=== PATIENT | male | born 1950 | race Caucasian/White ===

== ENCOUNTER 2017-01-02 16:04 | Inpatient (IN) | payer MEDICARE, OTHER ==
[~2017-01-02] VITALS: Ht 180.3 cm; Wt 93.7 kg
[~2017-01-02 16:04] MED LIST: ALLE60TA PO; APIX5TAB PO; BENI20TA5 PO; FLUT1SPR5 EACH NARE; LEVO.075 PO; RAPA8CAP PO; SYNT88TA PO; [UNRECOGNIZED DRUG - CODE] PO
[2017-01-09] MEDS ORDERED: ASPI81TA11 PO (12:20)
[2017-01-10] MEDS ORDERED: PROPOFOL 200 MG/20 ML AMP IV ONE (10:24)
[2017-01-10] MEDS ORDERED: ePHEDrine/NS 25 MG/5 ML SYR IV ONE (10:26)
[2017-01-10] MEDS ORDERED: PHENYLEPH/NS 1000 MCG/10 ML SYR IV ONE (10:27)
[2017-01-10] MEDS ORDERED: LACTATED RINGER'S 1000 ML INJ 1,000 ML IV ONE (10:27)
[2017-01-10] MEDS ORDERED: ONDANSETRON HCL 4 MG/2 ML VIAL IV PUSH ONE (10:27)
[2017-01-10] MEDS ORDERED: CHLORHEXIDINE GLUCONATE 2 % 1 PACK (2 CLOTHS) TOPICAL PRN (11:45)
[2017-01-10] MEDS ORDERED: LACTATED RINGER'S 1000 ML IV PRN (11:45)
[2017-01-10] MEDS ORDERED: POVIDONE IODINE 5% (ANTISEPSIS KIT) 4 APPLICATIONS EACH NARE PRN (11:45)
[2017-01-10] MEDS ORDERED: METOPROLOL TARTRATE 25 MG TAB PO PRN (11:45)
[2017-01-10] MEDS ORDERED: SODIUM CHLORID 0.9% 500 ML IV PRN (11:45)
[2017-01-10] MEDS ORDERED: INSULIN HUMAN REGULAR 1,000 UNITS/10 ML VIAL SQ PRN (11:45)
[2017-01-10] MEDS ORDERED: CIPROFLOXACIN 400 MG PREMIX 200 ML IV SCH (12:15)
[2017-01-10] MEDS ORDERED: GENTAMICIN IV SCH (12:15)
[2017-01-10] MEDS ORDERED: SODIUM CHLORIDE 0.9% IV SCH (12:15)
[2017-01-10 12:36] VITALS: BP 187/96; PULSE 68; RESP 20; TEMP 99.7; O2SAT 98
[2017-01-10] MEDS ORDERED: DEXAMETHASONE SOD PHOS 4 MG/ML VIAL ONE (13:21)
[2017-01-10] MEDS ORDERED: ACETAMINOPHEN 1000 MG/100 ML VIAL IV ONE (13:21)
[2017-01-10] MEDS ORDERED: fentaNYL CITRATE 250 MCG/5 ML AMP ONE (13:21)
[2017-01-10] MEDS ORDERED: MIDAZOLAM HCL 2 MG/2 ML VIAL ONE (13:21)
--- NOTE | 2017-01-10 15:05 | EKG ---
Date Performed: 01/10/2017 Time Performed: 11:59:23 PTAGE: 66 years EKG: Sinus rhythm NORMAL ECG NO PREVIOUS TRACING DOCTOR: Georgie Barker Interpretating Date/Time 01/10/2017 14:59:00
[2017-01-10] MEDS ORDERED: DO NOT ADM ANY ANTICOAGULANT DRUGS PRN (16:05)
[2017-01-10] MEDS ORDERED: oxyCODONE/ACETAMINOPHEN 5 MG/325 MG TAB PO PRN ×2 (16:15)
[2017-01-10] MEDS ORDERED: SODIUM CHLORIDE 0.9% FLUSH 10 ML FLUSH IV FLUSH PRN (16:15)
[2017-01-10] MEDS ORDERED: NALOXONE HCL 0.4 MG/ML AMP IV PRN (16:15)
[2017-01-10] MEDS ORDERED: LORATADINE 10 MG TAB PO PRN (16:15)
[2017-01-10] MEDS ORDERED: HYDROmorphone HCL PF 1 MG/ML VIAL IV PRN (16:15)
[2017-01-10] MEDS ORDERED: Post-op Orders (for Pharmacy) MISC XX ONE (16:15)
[2017-01-10] MEDS ORDERED: MORPHINE SULFATE 4 MG/ML INJ ONE (17:00)
[2017-01-10] MEDS: HYDROmorphone HCL PCA 6 MG/30 ML IV SCH (17:22)
[2017-01-10] MEDS: OXYBUTYNIN CHLORIDE 5 MG TAB PO SCH (19:55)
[2017-01-10] MEDS: ONDANSETRON HCL 4 MG/2 ML VIAL IV PRN (19:56)
[2017-01-10 20:00] VITALS: BP 91/50; PULSE 81; RESP 11; TEMP 98.2; O2SAT 96
[2017-01-10] MEDS ORDERED: BELLADONNA ALKALOIDS/OPIUM 60 MG SUPP RECTAL PRN (20:00)
[2017-01-10] MEDS ORDERED: ACETAMINOPHEN 325 MG TAB PO PRN (20:00)
[2017-01-10] MEDS: SODIUM CHLORIDE 0.9% FLUSH 10 ML FLUSH IV FLUSH SCH (20:02)
[2017-01-10 20:12] VITALS: BP 91/50; PULSE 81; RESP 11; TEMP 98.2; O2SAT 96
[2017-01-10] MEDS: GENTAMICIN/SOD CHL 80 MG/100 ML IV SCH (20:30)
[2017-01-10] MEDS ORDERED: LOSARTAN 50 MG TAB PO SCH (21:00)
[2017-01-10] MEDS: DOFETILIDE 250 MCG CAP PO SCH (21:04)
[2017-01-10 22:00] VITALS: PULSE 76
[2017-01-10] MEDS: PCA - TOTAL MG DILAUDID DELIVERED PER SHIFT OTHER SCH (22:00)
[2017-01-10] MEDS: DEXT 5%-NACL 0.45% 1000 ML INJ 1,000 ML IV SCH (22:41)
[2017-01-11] VITALS (11 sets, daily range): BP systolic 87–114; BP diastolic 50–61; PULSE 58–76; RESP 9–18; TEMP 98–98.5; O2SAT 95–96
[2017-01-11] MEDS: ONDANSETRON HCL 4 MG/2 ML VIAL IV PRN (03:44)
--- NOTE | 2017-01-11 03:51 | PD.CONS ---
[facility] Service Critical Care Medicine Consult Requested By Dr. 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 He has undergone retropubic prostatectomy by Dr. Tariq. In OR he received 1100 crystalloid, EBL 350, urine output 300. He was admitted to [facility] postoperatively and has been undergoing CBI. He is on maintenance IV fluids at 150 mL per hour. He developed hypotension 87/50 with mean arterial pressure of 62. Critical care medicine has been consulted due to hypotension. Blood pressure had improved to 111/71 without specific intervention. Patient states he is nauseated. He denies chest pressure or shortness of breath. HENNA has 170 of bloody output. Obtaining labs. Review of Systems Gastrointestinal: COMPLAINS OF: Nausea Past Family Social History Allergies: Coded Allergies: Penicillin (Verified Allergy, Unknown, Hives, 01/10/17) Past Medical History Hypothyroidism Hypertension Atrial fibrillation on chronic anticoagulation with xarelto Floater left eye Obesity Vertigo Hematuria Past Surgical History Left plantar fascial release Partial thyroidectomy Cystoscopy Colonoscopy 2 months ago which was performed and Malik. Reportedly no abnormalities Tonsillectomy during childhood Multiple prostate biopsies Face lift Had a cardiac catheterization 5 years ago with nonobstructive coronary disease Reported Medications Rapaflo 8 mg by mouth daily Benicar 20 mg by mouth daily daily at bedtime Dofetilide 250 mcg po bid Eliquis 5 mg by mouth twice a day Flonase 50 g each nares twice a day Aspirin 81 mg by mouth daily Yesica 60 mg by mouth twice a day Synthroid 75 g every other day/88 g every other day Family History Both parents had cancer Social History Lifetime nonsmoker Has 1-2 alcoholic beverages per week No illicit drug use Retired INSPECTOR [employer] Physical Exam Vital Signs Vital Signs Date Time Temp Pulse Resp B/P Pulse Ox O2 Delivery O2 Flow Rate FiO2 01/11/17 00:12 98.5 71 10 87/50 96 01/11/17 00:00 76 01/11/17 00:00 98.5 71 10 87/50 96 01/10/17 22:00 76 01/10/17 22:00 14 01/10/17 20:12 98.2 81 11 91/50 96 01/10/17 20:03 9 01/10/17 20:00 98.2 81 11 91/50 96 01/10/17 20:00 81 01/10/17 18:30 87 16 100/64 96 Nasal Cannula 2 01/10/17 18:15 82 16 101/58 97 Nasal Cannula 2 01/10/17 18:00 86 16 113/61 97 Nasal Cannula 2 01/10/17 17:45 85 16 100/58 96 Nasal Cannula 2 01/10/17 17:30 79 16 90/52 96 Nasal Cannula 2 01/10/17 17:22 16 01/10/17 17:15 78 16 96/56 98 Nasal Cannula 2 01/10/17 17:00 80 16 97/55 96 Nasal Cannula 2 01/10/17 16:45 80 16 99/62 95 Nasal Cannula 2 01/10/17 16:30 80 16 101/63 97 Nasal Cannula 2 01/10/17 16:15 80 16 94/65 98 Nasal Cannula 2 01/10/17 16:02 97.8 85 16 118/76 93 Nasal Cannula 2 01/10/17 12:36 99.7 68 20 187/96 98 Physical Exam Temp 98.5 pulse 60s, sinus on the monitor blood pressure 111/71 sats 96% on 3 L nasal cannula. GENERAL: Well-nourished, well-developed patient who is laying flat in C bed. SKIN: Warm and dry, well perfused. HEAD: Atraumatic. Normocephalic. EYES: Pupils equal and round. No scleral icterus. No injection or drainage. ENT: No nasal bleeding or discharge. Mucous membranes pink NECK: Trachea midline. No JVD. CARDIOVASCULAR: Regular rate and rhythm, sinus rhythm on the monitor. No murmurs rubs or gallops. RESPIRATORY: Breathing comfortably on nasal cannula without accessory muscle use. Diminished left base. No wheezes Rales or rhonchi. GASTROINTESTINAL: Abdomen soft, bowel sounds present. There is a HENNA drain and right lower quadrant with bloody output (170 mL). There is a dressing overlying midline vertical with minimal blood staining. : Three-way Kline is in place with bladder irrigation ongoing. Return in the Kline is punch colored. MUSCULOSKELETAL: Extremities without clubbing, cyanosis, or edema. No obvious deformities. DP pulses are bounding bilaterally. NEUROLOGICAL: Awake and alert. No obvious cranial nerve deficits. Motor grossly within normal limits.Normal speech. Laboratory Laboratory Tests Test 01/10/17 01/10/17 01/10/17 12:10 13:32 15:59 Blood Type A NEGATIVE A NEGATIVE Antibody Screen POSITIVE Crossmatch Leukocyte-Reduced Red Blood Cells Blood Bank Comment Antibody Identification Anti-M Assessment and Plan Assessment and Plan NEURO: History of vertigo Oxycodone as needed for pain. 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 Avoid NSAIDs due to SCOTTY RESP: Nasal cannula wean as tolerated. Incentive spirometry every hour when awake. Obtain chest x-ray CV: HTN Paroxysmal Atrial fibrillation Hypotension, improved. As an outpatient he is on Eliquis 5 milligrams by mouth twice a day. Eliquis / ASA 81 mg on hold. On dofetilide 150 g by mouth twice a day. This will need to be adjusted to 125 mg by mouth twice a day if creatinine clearance drops below 40, discontinued if below 20. Hold losartan 50 mg by mouth daily at bedtime due to hypotension and SCOTTY EKG sinus rhythm rate [address] segment changes. In view of hypotension will obtain CBC, troponin, lactic acid. Hypotension seems secondary to volume depletion and possible contribution of narcotics, now improved. However, will continue to monitor closely and followup labs. GI: Obesity Heart healthy diet FEN/INDU/UROLOGY: BPH Urinary retention Hematuria s/p retropubic prostatectomy 01/10/[address] Chandni FAJARDO Hypokalemia Hyperkalemia Change IV fluids to 0.9 NaCl 150 mL per hour. D/c D50.4 due to hyponatremia CBI ongoing per Urology. Monitor HENNA output. Creatinine was 0.80 on 01/01/17. f/u BMP at 15:00. Monitor I/O. Monitor electrolytes and replace as indicated. Avoid nephrotoxins. Received gentamicin 3 doses 01/10 ID: Leukocytosis Perioperative gentamicin and ciprofloxacin per urology. Monitor for signs and symptoms of infection. Afebrile. HEME: Acute blood loss Anemia Thrombocytopenia Hgb was 15.8 on 01/01/17. Postop hemoglobin is 12. We'll monitor hemoglobin and transfuse as indicated for hemoglobin less than 7 ENDO: Hypothyroidism Continue levothyroxine 75 g every other day/88 g every other day. Mild stress hyperglycemia Low-dose insulin sliding scale ac/hs PROPH: SCDs for DVT prophylaxis. Hold on pharmacologic DVT prophylaxis until appropriate per urology. Protonix 40 g by mouth daily for stress ulcer prophylaxis. ACCESS: Peripheral IV providing adequate access at this time. Level III consult Sarah Singh MD Jan 11, 2017 03:51
[2017-01-11 03:59] LABS: AUTOMATED NEUTROPHIL # 13.7 TH/MM3 (1.8-7.7); HEMATOCRIT 36.6 % (39.0-51.0); HEMO FLAGS DIFF FINAL; LYMPH % 5.1 % (9.0-44.0); LYMPHOCYTE # 0.8 TH/MM3 (1.0-4.8); MEAN CELL VOLUME 84.3 FL (80.0-100.0); MEAN CORPUSCULAR HEMOGLOBIN 27.7 PG (27.0-34.0); MEAN CORPUSCULAR HGB CONC 32.8 % (32.0-36.0); MONO % 7.2 % (0.0-8.0); NEUT % 87.7 % (16.0-70.0); PLATELET COUNT 143 TH/MM3 (150-450); RED BLOOD COUNT 4.34 MIL/MM3 (4.50-5.90); RED CELL DISTRIBUTION WIDTH 13.3 % (11.6-17.2); WHITE BLOOD COUNT 15.6 TH/MM3 (4.0-11.0)
[2017-01-11 04:21] LABS: ANION GAP 8 MEQ/L (5-15); AST (GOT) 9 U/L (15-37); BICARBONATE 26.5 MEQ/L (21.0-32.0); BLOOD UREA NITROGEN 18 MG/DL (7-18); CHLORIDE 101 MEQ/L (98-107); GLOMERULAR FILTRATION RATE 48 ML/MIN (>89); MAGNESIUM 1.8 MG/DL (1.5-2.5); POTASSIUM 5.2 MEQ/L (3.5-5.1); SODIUM (NA) 135 MEQ/L (136-145)
[2017-01-11 04:22] LABS: ALT (GPT) 18 U/L (12-78)
[2017-01-11 04:32] LABS: ALKALINE PHOSPHATASE 78 U/L (45-117); TOTAL BILIRUBIN ADULT 0.8 MG/DL (0.2-1.0)
[2017-01-11] MEDS: GENTAMICIN/SOD CHL 80 MG/100 ML IV SCH (05:17)
[2017-01-11] MEDS: DEXT 5%-NACL 0.45% 1000 ML INJ 1,000 ML IV SCH (05:17)
[2017-01-11] MEDS: PCA - TOTAL MG DILAUDID DELIVERED PER SHIFT OTHER SCH ×2 (05:30→13:44)
[2017-01-11] MEDS ORDERED: LEVOTHYROXINE SODIUM 88 MCG TAB PO SCH (06:00)
[2017-01-11] MEDS ORDERED: SODIUM CHLOR 0.9% 250 ML INJ 250 ML IV ONE (06:30)
--- NOTE | 2017-01-11 08:17 | RADRPT ---
EXAM DATE/TIME: 01/11/2017 07:35 [place] COMPARISON: No previous studies available for comparison. INDICATIONS : Short of breath, sore throat, post retropubic prostatectomy MEDICAL HISTORY : paralyzed left diaphagm SURGICAL HISTORY : prostatectomy ENCOUNTER: Initial ACUITY: 1 day PAIN SCORE: 1/10 LOCATION: Bilateral chest FINDINGS: A single view of the chest demonstrates prominent elevation left hemidiaphragm. There is shift of the mediastinum the right. Heart appears enlarged. Right lung clear. The cardiomediastinal contours are unremarkable. Osseous structures are intact. CONCLUSION: 1. Elevation left hemidiaphragm. 2. Clear lungs. Cheikh Mayes MD on January 11, 2017 at 8:15 Board Certified Radiologist. This report was verified electronically.
--- NOTE | 2017-01-11 08:27 | HHI.CCPN ---
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 He has undergone retropubic prostatectomy by Dr. Tariq. In OR he received 1100 crystalloid, EBL 350, urine output 300. He was admitted to [facility] postoperatively and has been undergoing CBI. He is on maintenance IV fluids at 150 mL per hour. He developed hypotension 87/50 with mean arterial pressure of 62. Critical care medicine has been consulted due to hypotension. Blood pressure had improved to 111/71 without specific intervention. Patient states he is nauseated. He denies chest pressure or shortness of breath. HENNA has 215 of bloody output. Obtaining labs. 01/11: Markedly elevated left diaphragm appears to be chronic and not effecting ventilation. Hypotension resolved with fluid, urine picking up. Watch renal function closely. Objective Vital Signs Date Time Temp Pulse Resp B/P Pulse Ox O2 Delivery O2 Flow Rate FiO2 01/11/17 06:00 62 01/11/17 05:30 22 01/11/17 04:12 98.0 114/61 95 01/10/17 18:30 Nasal Cannula 2 Intake and Output 01/10/17 01/10/17 01/10/17 07:59 15:59 23:59 Intake Total 100 ml Output Total 1220 ml Balance -1120 ml Result Diagram: 01/11/17 0329 01/11/17 0329 Objective Remarks Temp 98.5 pulse 60s, sinus on the monitor blood pressure 111/71 sats 96% on 3 L nasal cannula. GENERAL: Well-nourished, well-developed patient. SKIN: Warm and dry, well perfused. HEAD: Atraumatic. Normocephalic. EYES: Pupils equal and round. No scleral icterus. No injection or drainage. ENT: No nasal bleeding or discharge. Mucous membranes pink NECK: Trachea midline. Airway widely patent. CARDIOVASCULAR: Regular rate and rhythm, sinus rhythm on the monitor. No murmurs rubs or gallops. No JVD. RESPIRATORY: Breathing comfortably on nasal cannula without accessory muscle use. Diminished left base. No wheezes or crackles. GASTROINTESTINAL: Abdomen soft, bowel sounds present. There is a HENNA drain and right lower quadrant with dilute bloody output. There is a dressing overlying midline vertical with minimal blood staining. : Three-way Kline is in place with bladder irrigation ongoing. Return in the Kline is punch colored. MUSCULOSKELETAL: Extremities without clubbing, cyanosis, or edema. No obvious deformities. DP pulses are bounding bilaterally. Toes warm. NEUROLOGICAL: Awake and alert. No obvious cranial nerve deficits. Motor grossly within normal limits. Normal speech. A/P Assessment and Plan NEURO: History of vertigo Dilaudid SOFTBALL COACH RESP: Nasal cannula wean as tolerated. Incentive spirometry every hour when awake. CV: Paroxysmal Atrial fibrillation Controlled, continue dofetilide bid, adjust prn for gfr. GI: Obesity FEN/RENAL: D5 0.45 NaCl and 50 L per hour. CBI ongoing. Check CMP UROLOGY Status post ID: Perioperative gentamicin and ciprofloxacin per urology. HEME: ENDO: Hypothyroidism PROPH: SCDs for DVT prophylaxis. ACCESS: Peripheral IV providing adequate access at this time. Overall impression: Brief hypotension last night resolved with intravenous fluid volume. Stable hemodynamic and respiratory function. Watch for SCOTTY. Gurinder Contreras MD Jan 11, 2017 08:26
[2017-01-11] MEDS ORDERED: DEXTROSE 50% IN WATER 50 ML VIAL(D50) IV PRN (08:45)
[2017-01-11] MEDS ORDERED: GLUCAGON 1 MG/ML VIAL OTHER PRN (08:45)
--- NOTE | 2017-01-11 08:45 | EKG ---
Date Performed: 01/11/2017 Time Performed: 03:21:30 PTAGE: 66 years EKG: Sinus rhythm Normal ECG PREVIOUS TRACING : 01/10/2017 11.59 Compared to prior tracing no significant change DOCTOR: Jaron Medina Interpretating Date/Time 01/11/2017 08:43:38
[2017-01-11] MEDS ORDERED: PANTOPRAZOLE SOD 40 MG DELAYED RELEASE TAB PO SCH (09:00)
[2017-01-11] MEDS: SODIUM CHLORIDE 0.9% FLUSH 10 ML FLUSH IV FLUSH SCH (09:00)
[2017-01-11] MEDS: DOFETILIDE 250 MCG CAP PO SCH (09:26)
[2017-01-11] MEDS: SODIUM CHLOR 0.9% 1000 ML INJ 1,000 ML IV SCH ×2 (09:26→15:40)
[2017-01-11] MEDS: OXYBUTYNIN CHLORIDE 5 MG TAB PO SCH ×2 (09:26→13:39)
[2017-01-11] MEDS: INSULIN ASPART SUPPLEMENTAL SCALE SQ SCH ×2 (11:44→16:00)
[2017-01-11] MEDS: HYDROmorphone HCL PCA 6 MG/30 ML IV SCH (13:44)
--- NOTE | 2017-01-11 15:54 | HHI.PR ---
Subjective Patient symptoms today feeling better, no nausea, "ready to go home" Objective Vital Signs Vital Signs Date Time Temp Pulse Resp B/P Pulse Ox O2 Delivery O2 Flow Rate FiO2 01/11/17 15:02 12 01/11/17 14:00 61 01/11/17 13:44 12 01/11/17 13:44 12 01/11/17 12:00 60 01/11/17 12:00 98.2 60 10 104/58 95 01/11/17 10:00 61 16 106/55 95 01/11/17 10:00 61 01/11/17 08:00 61 01/11/17 08:00 98.4 60 18 103/56 95 01/11/17 07:00 95 Nasal Cannula 2.00 01/11/17 06:00 62 01/11/17 05:30 22 01/11/17 04:12 98.0 63 9 114/61 95 01/11/17 04:00 63 01/11/17 02:00 67 01/11/17 00:12 98.5 71 10 87/50 96 01/11/17 00:00 76 01/11/17 00:00 98.5 71 10 87/50 96 01/10/17 22:00 76 01/10/17 22:00 14 01/10/17 20:12 98.2 81 11 91/50 96 01/10/17 20:00 98.2 81 11 91/50 96 01/10/17 20:00 81 01/10/17 18:30 87 16 100/64 96 Nasal Cannula 2 01/10/17 18:15 82 16 101/58 97 Nasal Cannula 2 01/10/17 18:00 86 16 113/61 97 Nasal Cannula 2 01/10/17 17:45 85 16 100/58 96 Nasal Cannula 2 01/10/17 17:30 79 16 90/52 96 Nasal Cannula 2 01/10/17 17:22 16 01/10/17 17:15 78 16 96/56 98 Nasal Cannula 2 01/10/17 17:00 80 16 97/55 96 Nasal Cannula 2 01/10/17 16:45 80 16 99/62 95 Nasal Cannula 2 01/10/17 16:30 80 16 101/63 97 Nasal Cannula 2 01/10/17 16:15 80 16 94/65 98 Nasal Cannula 2 01/10/17 16:02 97.8 85 16 118/76 93 Nasal Cannula 2 Intake & Output 01/11/17 01/11/17 07:00 19:00 Intake Total 1426 ml 1875 ml Output Total 1455 ml 1205 ml Balance -29 ml 670 ml Intake Oral 220 ml 500 ml IV Total 1206 ml 1375 ml Output Urine Total 1350 ml 1200 ml Drainage Total 105 ml 5 ml Result Diagram: 01/11/17 0329 01/11/17 0329 Imaging Last 24 hours Impressions Chest X-Ray 01/11/17 0000 Signed Impressions: Service Date/Time: Wednesday, January 11, 2017 07:35 - CONCLUSION: 1. Elevation left hemidiaphragm. 2. Clear lungs. Cheikh Mayes MD Objective Remarks wound is dry, HENNA had over 100 last night, but virtually nothing during the day urine bloody (sebastian) but no clots all day, CBI stopped by MKD HENNA drain removed Medications and IVs Current Medications Medications (Trade) Dose Ordered Sig/Alvarado Route Start Time Stop Time Status Last Admin (Tikosyn) 250 mcg BID PO 01/10/17 21:00 01/11/17 09:26 (Synthroid) 75 mcg Q48H PO 01/12/17 06:00 (Synthroid) 88 mcg Q48H PO 01/11/17 06:00 01/11/17 05:28 (Claritin) 10 mg DAILY PRN PO 01/10/17 16:15 (Cozaar) 50 mg HS PO 01/10/17 21:00 Hold (Narcan Inj) 0.4 mg UNSCH PRN IV 01/10/17 16:15 (Dilaudid [employer]ER Inj) 6 mg UNSCH IV 01/10/17 16:15 01/11/17 13:44 WHE[employer] AND [employer]ER Dosage Infused (Pha) 1 Q8HR OTHER 01/10/17 22:00 01/11/17 13:44 (NS Flush) 2 ml UNSCH PRN IV FLUSH 01/10/17 16:15 (NS Flush) 2 ml BID IV FLUSH 01/10/17 21:00 01/10/17 20:02 (Percocet 5-325 Mg) 1 tab Q4H PRN PO 01/10/17 16:15 (Percocet 5-325 Mg) 2 tab Q4H PRN PO 01/10/17 16:15 (Dilaudid Pf Inj) 1 mg Q2H PRN IV 01/10/17 16:15 (Ditropan) 5 mg TID PO 01/10/17 18:00 01/11/17 13:39 (Zofran Inj) 4 mg Q6H PRN IV 01/10/17 16:15 01/11/17 03:44 Miscellaneous Information ALL NURSING DEPARTME... UNSCH PRN .XX 01/10/17 16:05 01/11/17 16:04 (B & O Supp) 60 mg Q6H PRN RECTAL 01/10/17 20:00 (Tylenol) 650 mg Q3H PRN PO 01/10/17 20:00 (D50w (Vial) Inj) 50 ml UNSCH PRN IV 01/11/17 08:45 Glucagon 1 mg 1 mg UNSCH PRN OTHER 01/11/17 08:45 (NS 1000 ml Inj) 1,000 ml @ 150 mls/hr Q6H40M IV 01/11/17 09:00 01/11/17 09:26 (Protonix) 40 mg DAILY PO 01/11/17 09:00 01/11/17 09:27 Assessment and Plan Assessment and Plan Post op day #1 retropubic prostatectomy for clinically B-9 disease (not a radical prostatectomy for cancer) stable, and OK for d.c 1) Home health care ([facility]) has been arranged and will see patient this evening 2) catheter will come out after 7 days AND after the urine is clear for 24 hours 3) may shower at home 4) has RX for pain meds and antibiotics at home 5) our office visit will be arranged for by us. Alcides Tariq MD Jan 11, 2017 15:54
[2017-01-11] MEDS ORDERED: MACR100C2 PO (17:52)
[2017-01-12] MEDS ORDERED: LEVOTHYROXINE SODIUM 75 MCG TAB PO SCH (06:00)
--- NOTE | 2017-01-12 10:00 | MP ---
cc: FRANKLIN LOMAS MD DATE OF SURGERY: 01/12/2017 PREOPERATIVE DIAGNOSIS: Bladder neck obstruction secondary to prostatic hypertrophy. POSTOPERATIVE DIAGNOSIS: Bladder neck obstruction secondary to prostatic hypertrophy. OPERATION: Retropubic prostatectomy for clinically benign disease. SURGEON Chandni SEARCH AND RESCUE OFFICER: Dr. El Menendez. ANESTHESIA: General NOTE IN DETAIL: This gentleman was worked up in our office for the above-mentioned problem, was felt to be a suitable candidate for this procedure. His prostate was felt to be fairly large preoperatively and on a reasonable candidate for a transurethral procedure. Therefore, on the same-day admit basis. He was brought to the holding area given appropriate preoperative antibiotics was taken from there to the operating room, given a general anesthetic time-out was taken for identification purposes. He was then given a 10-minute shave prep and appropriate scrub prep and the Kline catheter was then inserted. He was draped appropriately and a longitudinal incision was made between the symphysis pubis in the umbilicus and carried on the space of Retzius which was then developed and packed off bilaterally. A transverse capsulotomy was made the adenoma was then enucleated excess tissue was taken down with sharp dissection and hemostasis tended to with the use of ligature as well as electrocautery and O Monocryl ligature was used across the top of the capsule from the left to the right apex. A 22-gauge Kline catheter with 30 c cc balloon was then placed and was bladder and was inflated to about 70 cc's and placed on gentle gauze traction and irrigated until reasonably clear. He had an estimated blood loss of about 350-400 cc. The fascia was closed over because the wound was a bit wet we elected to utilize a HENNA drain. The skin closed over with marly and appropriately bandaged. He tolerated the procedure well was returned to the recovery room in stable condition. MD KANDY Blood/chang /4:52 PM /9:56 AM
[2017-01-14] MEDS ORDERED: BACT800T5 PO (23:02)
== END 2017-01-11 18:14 | disposition home or self-care (01) | DRG 717 ==
LOC: HSDI 01-10 11:24 → N03A 01-10 19:16
PROC: 0VB00ZZ Excision of Prostate, Open Approach (ICD-10-PCS; principal; 2017-01-10 13:42)
DX: N40.1 Benign prostatic hyperplasia with lower urinary tract symptoms (principal); N13.8 Other obstructive and reflux uropathy; N17.9 Acute kidney failure, unspecified; I95.9 Hypotension, unspecified; D69.6 Thrombocytopenia, unspecified; E87.1 Hypo-osmolality and hyponatremia; I48.0 Paroxysmal atrial fibrillation; D62 Acute posthemorrhagic anemia; E87.5 Hyperkalemia; E86.9 Volume depletion, unspecified; I10 Essential (primary) hypertension; E03.9 Hypothyroidism, unspecified; E87.6 Hypokalemia; R33.9 Retention of urine, unspecified; Z79.01 Long term (current) use of anticoagulants; Z79.82 Long term (current) use of aspirin; Z79.899 Other long term (current) drug therapy; E66.9 Obesity, unspecified; Z68.28 Body mass index [BMI] 28.0-28.9, adult; R31.9 Hematuria, unspecified; R73.09 Other abnormal glucose
CPT/HCPCS: 71010; 80053; 82948; 83605; 83735; 84100; 84443; 84484; 85025; 86077; 86850; 86870; 86900; 86901; 86902; 86920; 86922; 88305; 88307; 93005; J0131; J1100; J1170; J1580; J2250; J2270; J2370; J2405; J3010; J7030; J7050; J7120